=== PATIENT | male | born 1955 | race Caucasian/White ===

== ENCOUNTER 2017-07-19 11:26 | Emergency (ER) | payer BC ==
[~2017-07-19] VITALS: Ht 180.3 cm; Wt 81.6 kg
[2017-07-19 12:27] LABS: HEMATOCRIT 40.8 % (38.0-50.0); MCH 30.5 PG (29.0-34.0); MCHC 35.5 G/DL (30.0-36.0); MCV 85.9 FL (86-99); PLATELET COUNT 136 K/uL (156-360); RBC DIS.WIDTH-CV 11.9 % (11.8-14.6); RBC DIS.WIDTH-SD 37.2 % (39-53); RED BLOOD COUNT 4.75 M/uL (4.00-5.50); WHITE BLOOD COUNT 6.5 K/uL (4.1-10.2)
[2017-07-19 12:44] LABS: CHLORIDE 105 mEq/L (99-109); POTASSIUM 5.1 mEq/L (3.7-5.4); SODIUM 139 mEq/L (136-147)
[2017-07-19 12:46] LABS: GLUCOSE 103 mg/dL (70-99)
[2017-07-19 12:47] LABS: ANION GAP 6 MEQ/L (2-14)
[2017-07-19 12:50] LABS: GFR ESTIMATE (CALCULATED) > 59 mL/min/; UREA NITROGEN (BUN) 24 mg/dL (9-23)
[2017-07-19 12:51] LABS: TROP-I INTERPRETATION NEGATIVE; TROPONIN-I < 0.01 ng/mL (0.0-0.30)
[2017-07-19] MEDS ORDERED: MECLIZINE HCL25 MG PO (15:09)
[2017-07-19 15:46] VITALS: BP 146/85
== END 2017-07-19 15:55 | disposition home or self-care (01) ==
LOC: EME 11:26
DX: R42 Dizziness and giddiness (principal); R07.89 Other chest pain; S40.219A Abrasion of unspecified shoulder, initial encounter; W22.09XA Striking against other stationary object, initial encounter; Y93.31 Activity, mountain climbing, rock climbing and wall climbing
CPT/HCPCS: 70496; 70498; 71020; 80048; 84484; 85027; 93005; 99281; 99285; J7030